=== PATIENT | male | born 1985 | race Hispanic/Latino ===

== ENCOUNTER 2019-01-28 21:36 | Emergency (ER) | payer OTHER ==
[2019-01-28 22:06] VITALS: BP 144/91; PULSE 94; RESP 16; TEMP 98.4; O2SAT 100
--- NOTE | 2019-01-28 22:39 | ED PDOC ---
Upper Extremity Pain/Injury Time Seen by Provider: 01/28/19 22:11 Chief Complaint (Nursing): Upper Extremity Problem/Injury Chief Complaint (Provider): Right Elbow Injury History Per: Patient History/Exam Limitations: no limitations Onset/Duration Of Symptoms: Hrs (since 730pm today) Current Symptoms Are (Timing): Still Present Quality: Sharp Pain Scale Rating Of: 4 (at rest) Additional Complaint(s): Patient is a 33 year old male who presents to the ED for evaluation of a right elbow injury. Patient reports around 730pm tonight he was playing basketball when he was running, fell, and landed on an outstretched right arm. Patient reports localized pain to the elbow joint that worsens with movement. No previous elbow injury or surgery. Patient is right hand dominant. 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 Denies head injury or LOC. No other complaints at present. Denies recent fever or loss of sensation. PMD: none Past Medical History Reviewed: Historical Data, Nursing Documentation, Vital Signs Vital Signs: Last Vital Signs Temp 98.4 F 01/28/19 22:02 Pulse 94 H 01/28/19 22:02 Resp 16 01/28/19 22:02 BP 144/91 H 01/28/19 22:02 Pulse Ox 100 01/28/19 22:02 - Medical History PMH: No Chronic Diseases - Surgical History Surgical History: No Surg Hx - Family History Family History: States: Unknown Family Hx - Social History Current smoker - smoking cessation education provided: Yes (1-2/week) Alcohol: Social Drugs: Cannabis - Home Medications Home Medications: Ambulatory Orders Medication Instructions Recorded Acetaminophen [Acetaminophen 8 650 mg PO Q8 PRN #21 tablet.er 01/28/19 Hour] Ibuprofen [Motrin Tab] 800 mg PO Q8 PRN #21 tab 01/28/19 - Allergies Allergies/Adverse Reactions: Allergies Allergy/AdvReac Type Severity Reaction Status Date / Time No Known Allergies Allergy Verified 01/28/19 22:12 Review of Systems ROS Statement: Except As Marked, All Systems Reviewed And Found Negative Constitutional: Negative for: Fever Musculoskeletal: Positive for: Other (right elbow pain) Neurological: Negative for: Numbness Physical Exam - Reviewed Nursing Documentation Reviewed: Yes Vital Signs Reviewed: Yes - Physical Exam Comments: GENERALIZED APPEARANCE: Patient is awake, alert, oriented x3; resting comfortably in no acute distress. VITAL SIGNS: Per nurse's note, reviewed by me. SKIN: Warm, dry; (-) cyanosis. NECK: Supple, FROM ENT: Mucus membranes moist. Airway patent, (-) stridor. UPPER EXTREMITY: Arm held in slight flexion (-) palpable deformity. Mild tenderness of elbow over medial and lateral aspects (+) small joint effusion (-) ecchymosis (-) erythema (-) skin break. (-) distal neurovascular deficit.Shoulder, wrist and hand: (-) tenderness, (-) limitation of motion. Sensation intact throughout. (+) pulses CHEST AND RESPIRATORY: (-) rales, (-) rhonchi, (-) wheezes; breath sounds equal bilaterally. Respirations even and nonlabored. HEART AND CARDIOVASCULAR: (-) irregularity - ECG O2 Sat by Pulse Oximetry: 100 (RA) Pulse Ox Interpretation: Normal Medical Decision Making Medical Decision Makin Initial Impression: Acute elbow injury s/p fall Plan: -Toradol 30mg IM -Elbow XR 3 views -Re-evaluation 2299 Elbow XR: (+) nondisplaced radial head fracture as read by Prashant ZENDEJAS Patient placed in posterior long arm splint by atm technicianjael Martinez. Patient placed in sling and educated on splint care. NV intact after splint placement (+) distal pulses. On re-evaluation, patient reports improvement of symptoms. On exam, patient remains AAOx3, in no acute distress. Vitals stable. Lab/Diagnostic results d/w the patient in great detail. Diagnosis of acute elbow pain, radial head fracture d/w the patient. Based on history, exam and diagnostic results, plan will be for outpatient follow up with ortho. Patient instructed to follow-up with pmd / referral provided / the clinic in 1- 2 days without fail. Advised to take medication as prescribed. Return to the emergency room at any time for any new or worsening symptoms. Patient states he fully agrees with and understands discharge instructions. States that he agrees with the plan and disposition. Verbalized and repeated discharge instructions and plan. I have given the patient opportunity to ask any additional questions. Disposition - Clinical Impression Clinical Impression: Elbow pain, Fall, Radial head fracture, closed - Patient ED Disposition Is Patient to be Admitted: No Counseled Patient/Family Regarding: Studies Performed, Diagnosis, Need For Followup, Rx Given - Disposition Referrals: Nam Yepez III, MD [Staff Provider] - Disposition: Routine/Home Disposition Time: 23:10 Condition: STABLE Additional Instructions: The emergency medical care you received today was directed at your acute symptoms. If you were prescribed any medication, please fill it and take as directed. It may take several days for your symptoms to resolve. Return to the Emergency Department if your symptoms worsen, do not improve, or if you have any other problems. Please contact your doctor in 2 days for re-evaluation and follow up / or call one of the physicians/clinics you have been referred to that are listed on the Patient Visit Information form that is included in your discharge packet. Bring any paperwork you were given at discharge with you along with any medications you are taking to your follow up visit. Our treatment cannot replace ongoing medical care by a primary care provider (PCP) outside of the emergency department. Prescriptions: Acetaminophen [Acetaminophen 8 Hour] 650 mg PO Q8 PRN #21 tablet.er PRN Reason: Pain, Moderate (4-7) Ibuprofen [Motrin Tab] 800 mg PO Q8 PRN #21 tab PRN Reason: Pain, Moderate (4-7) Instructions: Radius Fracture, Elbow Fracture (DC) Forms: [employer] (Telugu), [facility] ED School/Work Excuse Print Language: KENYAN - POA Present On Arrival: Falls Or Trauma
--- NOTE | 2019-01-29 14:37 | RAD ---
Date of service: 01/28/2019 PROCEDURE: Radiographs of the right elbow. HISTORY: r/o fracture, s/p fall COMPARISON: No prior. TECHNIQUE: Four views obtained. FINDINGS: BONES: There is a minimally displaced fracture of the radial head. There is a joint effusion with elevation of the anterior and posterior fat pad JOINTS: Normal. No osteoarthritis. SOFT TISSUES: Normal. JOINT EFFUSION: Joint effusion with elevation of the anterior posterior fat pad OTHER FINDINGS: None. IMPRESSION: There is a minimally displaced fracture of the radial head. There is a joint effusion with elevation of the anterior and posterior fat pad
== END 2019-01-28 23:44 | disposition home or self-care (01) ==
LOC: H.ER 21:36
DX: S52.121A Displaced fracture of head of right radius, initial encounter for closed fracture (principal); W19.XXXA Unspecified fall, initial encounter; Y92.310 Basketball court as the place of occurrence of the external cause